=== PATIENT | female | born 1960 | race African-American/Black ===

== ENCOUNTER 2018-01-15 15:49 | Emergency (ER) | payer MEDICAID ==
[~2018-01-15] VITALS: Ht 177.8 cm; Wt 72.6 kg
[~2018-01-15 15:49] MED LIST: LORA5TAB8 PO
[2018-01-15] MEDS ORDERED: SODIUM CHLORIDE 0.9% 1,000 ML IV ONE (16:30)
[2018-01-15 17:26] LABS: EOSINOPHILS % 3.7 % (0.0-5.0); HEMATOCRIT. 34.8 % (36.0-48.0); LYMPHOCYTES % 35.4 % (20.0-50.0); MEAN CORPUSCULAR HEMOGLOBIN 32.8 pg (28.0-32.0); MEAN CORPUSCULAR VOLUME 95.4 fL (81.0-99.0); MONOCYTES % 7.5 % (2.0-8.0); NEUTROPHILS % 52.4 % (40.0-76.0); PLATELET 223 x1000/uL (130-400); RED BLOOD CELL COUNT 3.65 mill/uL (4.2-5.4); RED CELL DISTRIBUTION WIDTH 13.8 % (11.6-14.6)
[2018-01-15 17:28] LABS: CHLORIDE 115 mEq/L (98-107)
[2018-01-15 17:29] LABS: INR 1.1; PROTHROMBIN TIME 10.8 sec (9.1-11.1)
[2018-01-15 20:31] LABS: CLARITY URINE CLEAR (CLEAR); COLOR URINE DARK YELLOW (YELLOW); KETONES URINE NEGATIVE (NEGATIVE); LEUKOCYTE ESTERASE URINE NEGATIVE (NEGATIVE); NITRITE URINE NEGATIVE (NEGATIVE); OCCULT BLOOD URINE 1+ (NEGATIVE); PH URINE 6.5 (4.5-8.0); PROTEIN URINE NEGATIVE (NEGATIVE); UROBILINOGEN URINE 0.2 E.U./dL (0.2-1.0)
[2018-01-15 20:45] VITALS: BP 144/73
== END 2018-01-15 21:40 | disposition home or self-care (01) ==
LOC: ER 15:49
DX: R19.7 Diarrhea, unspecified (principal); R11.0 Nausea; R31.9 Hematuria, unspecified; R10.9 Unspecified abdominal pain; F17.200 Nicotine dependence, unspecified, uncomplicated; F41.9 Anxiety disorder, unspecified; J45.909 Unspecified asthma, uncomplicated; Z76.5 Malingerer [conscious simulation]
CPT/HCPCS: 36415; 71045; 80053; 81003; 83690; 85025; 85610; 87804; 96360; 99284; J7030

== ENCOUNTER 2020-12-12 07:44 | Emergency (ER) | payer MEDICAID ==
[~2020-12-12] VITALS: Ht 165.1 cm; Wt 66.0 kg
[2020-12-12 07:52] VITALS: BP 137/74
== END 2020-12-12 08:57 | disposition left against medical advice (07) ==
LOC: ER 07:44
DX: F41.9 Anxiety disorder, unspecified (principal); J45.909 Unspecified asthma, uncomplicated; F12.10 Cannabis abuse, uncomplicated
CPT/HCPCS: 99283